=== PATIENT | male | born 1965 | race African-American/Black ===

== ENCOUNTER 2022-08-09 20:11 | Inpatient (IN) | payer OTHER ==
[~2022-08-09] VITALS: Ht 172.7 cm; Wt 72.6 kg
[2022-08-09] MEDS ORDERED: MAGNESIUM/ALUMINUM HYDROXIDE/SIMETHICONE 30ML UDC PO STA (21:12)
[2022-08-09] MEDS ORDERED: VISCOUS LIDOCAINE 2% 15 ML UDC PO STA (21:12)
[2022-08-09 22:18] LABS: CLARITY URINE CLEAR (CLEAR); COLOR URINE YELLOW (YELLOW); KETONES URINE NEGATIVE (NEGATIVE); LEUKOCYTE ESTERASE URINE NEGATIVE (NEGATIVE); NITRITE URINE NEGATIVE (NEGATIVE); OCCULT BLOOD URINE NEGATIVE (NEGATIVE); PROTEIN URINE TRACE (NEGATIVE); SPECIFIC GRAVITY URINE 1.023 (1.005-1.030); UROBILINOGEN URINE 0.2 E.U./dL (0.2-1.0)
[2022-08-09] MEDS ORDERED: SODIUM CHLORIDE 0.9% 1,000 ML IV ONE (22:30)
[2022-08-09] MEDS ORDERED: MORPHINE SULFATE 4 MG/ML CPJ (NOT FOR IM USE) IV ONE (22:30)
[2022-08-09] MEDS ORDERED: ONDANSETRON HCL 4MG/2ML INJ IV ONE (22:30)
[2022-08-09 22:33] LABS: *AMPHETAMINES SCREEN URINE NEGATIVE (NEGATIVE); *BARBITURATES SCREEN URINE NEGATIVE (NEGATIVE); *BENZODIAZEPINES SCREEN URINE NEGATIVE (NEGATIVE); *COCAINE SCREEN URINE NEGATIVE (NEGATIVE); CANNABINOID URINE SCREEN NEGATIVE (NEGATIVE); METHADONE URINE SCREEN NEGATIVE (NEGATIVE); OPIATES URINE SCREEN NEGATIVE (NEGATIVE); PHENCYCLIDINE URINE SCREEN NEGATIVE (NEGATIVE)
[2022-08-09 22:58] LABS: BASOPHILS % 0.3 % (0.0-2.0); EOSINOPHILS % 1.3 % (0.0-5.0); HEMATOCRIT. 41.4 % (42.0-52.0); HEMOGLOBIN. 13.2 g/dL (14.0-18.0); LYMPHOCYTES % 11.9 % (20.0-50.0); MEAN CORPUSCULAR HEMOGLOBIN 24.5 pg (28.0-32.0); MEAN CORPUSCULAR VOLUME 76.8 fL (80.0-94.0); MEAN PLATELET VOLUME 7.5 fl (7.4-10.4); MONOCYTES % 6.1 % (2.0-8.0); NEUTROPHILS % 80.4 % (40.0-76.0); PLATELET 380 x1000/uL (130-400); RED BLOOD CELL COUNT 5.39 mill/uL (4.7-6.1); RED CELL DISTRIBUTION WIDTH 16.3 % (11.6-14.6)
[2022-08-09 23:00] LABS: CHLORIDE 105 mEq/L (98-107)
[2022-08-09] MEDS ORDERED: MAGNESIUM/ALUMINUM HYDROXIDE/SIMETHICONE 30ML UDC PO NR (23:00)
[2022-08-09] MEDS ORDERED: VISCOUS LIDOCAINE 2% 15 ML UDC PO NR (23:00)
[2022-08-09 23:09] LABS: ETHANOL BLOOD < 10 mg/dL
[2022-08-09 23:13] LABS: PROTHROMBIN TIME 10.6 sec (9.6-11.0)
[2022-08-10] MEDS ORDERED: IOHEXOL-300 100 ML BOTTLE ONE (01:06)
[2022-08-10] MEDS ORDERED: MORPHINE SULFATE 4 MG/ML CPJ (NOT FOR IM USE) IV ONE (01:30)
[2022-08-10 04:00] VITALS: BP 131/83
[2022-08-10 04:30] VITALS: BP 131/83
[2022-08-10] MEDS ORDERED: NALOXONE HCL 0.4MG/ML VIAL IV PRN (06:00)
[2022-08-10 08:00] VITALS: BP 119/71
[2022-08-10] MEDS: ONDANSETRON HCL 4MG/2ML INJ IV PRN ×2 (09:31→18:39)
[2022-08-10] MEDS: MORPHINE SULFATE 2 MG/ML CPJ (NOT FOR IM USE) IV PRN ×3 (09:32→23:16)
[2022-08-10] MEDS: DEXT 5%/0.45% NACL 1000ML 1,000 ML IV SCH ×2 (11:00→21:20)
[2022-08-10 12:00] VITALS: BP 99/46
[2022-08-10 12:37] LABS: HEPATITIS B SURFACE ANTIGEN NEGATIVE
[2022-08-10] MEDS ORDERED: DIATR MEGLU/DIATRIZOATE SOLN 120ML ONE (12:47)
[2022-08-10] MEDS: PIPERACILLIN/TAZOBACTAM 3.375 G in DEXTROSE 5% WATER 50 ML IV SCH ×2 (14:49→21:16)
[2022-08-10 16:01] VITALS: BP 102/60
[2022-08-10 20:00] VITALS: BP 113/77
[2022-08-11] VITALS: BP 116/71
[2022-08-11 04:00] VITALS: BP 101/62
[2022-08-11] MEDS: ONDANSETRON HCL 4MG/2ML INJ IV PRN (04:01)
[2022-08-11] MEDS: MORPHINE SULFATE 2 MG/ML CPJ (NOT FOR IM USE) IV PRN ×2 (04:03→22:26)
[2022-08-11] MEDS: PIPERACILLIN/TAZOBACTAM 3.375 G in DEXTROSE 5% WATER 50 ML IV SCH ×3 (05:46→22:26)
[2022-08-11] MEDS: DEXT 5%/0.45% NACL 1000ML 1,000 ML IV SCH ×2 (06:26→17:00)
[2022-08-11 08:00] VITALS: BP 103/56
[2022-08-11 08:51] LABS: HEMATOCRIT. 42.7 % (42.0-52.0); HEMOGLOBIN. 13.5 g/dL (14.0-18.0); MEAN CORPUSCULAR HEMOGLOBIN 24.5 pg (28.0-32.0); MEAN CORPUSCULAR VOLUME 77.3 fL (80.0-94.0); MEAN PLATELET VOLUME 7.5 fl (7.4-10.4); PLATELET 397 x1000/uL (130-400); RED BLOOD CELL COUNT 5.53 mill/uL (4.7-6.1); RED CELL DISTRIBUTION WIDTH 16.1 % (11.6-14.6)
[2022-08-11 09:09] LABS: CHLORIDE 103 mEq/L (98-107)
[2022-08-11] MEDS: PANTOPRAZOLE SODIUM 40 MG/VIAL IV SCH (10:10)
[2022-08-11 12:00] VITALS: BP 108/65
[2022-08-11 14:24] LABS: PLATELET ESTIMATE NORMAL
[2022-08-11 16:11] VITALS: BP 120/68
[2022-08-11 20:00] VITALS: BP 118/71
[2022-08-12] MEDS: DEXT 5%/0.45% NACL 1000ML 1,000 ML IV SCH ×3 (04:12→23:00)
[2022-08-12] MEDS: PIPERACILLIN/TAZOBACTAM 3.375 G in DEXTROSE 5% WATER 50 ML IV SCH ×3 (06:18→21:47)
[2022-08-12 06:47] LABS: BASOPHILS % 0.2 % (0.0-2.0); EOSINOPHILS % 3.2 % (0.0-5.0); HEMATOCRIT. 39.1 % (42.0-52.0); HEMOGLOBIN. 12.6 g/dL (14.0-18.0); LYMPHOCYTES % 26.1 % (20.0-50.0); MEAN CORPUSCULAR HEMOGLOBIN 24.9 pg (28.0-32.0); MEAN CORPUSCULAR VOLUME 76.9 fL (80.0-94.0); MEAN PLATELET VOLUME 7.5 fl (7.4-10.4); MONOCYTES % 12.4 % (2.0-8.0); NEUTROPHILS % 58.1 % (40.0-76.0); PLATELET 370 x1000/uL (130-400); RED BLOOD CELL COUNT 5.08 mill/uL (4.7-6.1)
[2022-08-12 08:00] VITALS: BP 97/56
[2022-08-12] MEDS: PANTOPRAZOLE SODIUM 40 MG/VIAL IV SCH (09:18)
[2022-08-12 12:00] VITALS: BP 97/64
[2022-08-12 14:04] LABS: CHLORIDE 104 mEq/L (98-107)
[2022-08-12] MEDS: MORPHINE SULFATE 2 MG/ML CPJ (NOT FOR IM USE) IV PRN ×2 (14:43→23:19)
[2022-08-12 16:00] VITALS: BP 115/71
[2022-08-12] MEDS ORDERED: ENOXAPARIN 40MG/0.4ML SYR SUBCUT SCH (20:15)
[2022-08-13] VITALS: BP 109/69
[2022-08-13] MEDS: PIPERACILLIN/TAZOBACTAM 3.375 G in DEXTROSE 5% WATER 50 ML IV SCH ×2 (06:13→14:13)
[2022-08-13 07:20] LABS: BASOPHILS % 0.2 % (0.0-2.0); EOSINOPHILS % 3.4 % (0.0-5.0); HEMATOCRIT. 37.5 % (42.0-52.0); HEMOGLOBIN. 12.1 g/dL (14.0-18.0); LYMPHOCYTES % 25.6 % (20.0-50.0); MEAN CORPUSCULAR VOLUME 77.6 fL (80.0-94.0); MEAN PLATELET VOLUME 7.5 fl (7.4-10.4); MONOCYTES % 10.9 % (2.0-8.0); NEUTROPHILS % 59.9 % (40.0-76.0); PLATELET 327 x1000/uL (130-400); RED BLOOD CELL COUNT 4.83 mill/uL (4.7-6.1); RED CELL DISTRIBUTION WIDTH 15.9 % (11.6-14.6)
[2022-08-13 07:49] LABS: CHLORIDE 104 mEq/L (98-107)
[2022-08-13 08:00] VITALS: BP 107/57
[2022-08-13] MEDS: PANTOPRAZOLE SODIUM 40 MG/VIAL IV SCH (09:45)
[2022-08-13] MEDS: DEXT 5%/0.45% NACL 1000ML 1,000 ML IV SCH (09:46)
[2022-08-13 12:00] VITALS: BP 118/60
[2022-08-13 16:13] VITALS: BP 112/67
[2022-08-13 17:25] VITALS: BP 112/67
== END 2022-08-13 19:37 | disposition home or self-care (01) | DRG 249 ==
LOC: ER 20:52 → 6EST 08-10 01:39 → EDBEDREQ 08-10 01:42 → EDBEDREQTM 08-10 01:42
PROVIDERS: ADMIT Internal Medicine; ATTEND Internal Medicine
DX: K52.9 Noninfective gastroenteritis and colitis, unspecified (principal); K56.600 Partial intestinal obstruction, unspecified as to cause; D72.829 Elevated white blood cell count, unspecified; F17.210 Nicotine dependence, cigarettes, uncomplicated; Z20.822 Contact with and (suspected) exposure to COVID-19
CPT/HCPCS: 36415; 74018; 74177; 74250; 80048; 80053; 80305; 80320; 81003; 85025; 86803; 87340; 87426; 99285; C9113; J1650; J2270; J2405; J2543; J7030; J7060; Q9963; Q9967; G0480